=== PATIENT | male | born 1950 | race Caucasian/White ===

== ENCOUNTER 2017-03-15 19:31 | Emergency (ER) | payer MEDICARE, SELFPAY | END 2017-03-16 00:34 | disposition home or self-care (01) | LOC: ER 19:31 | DX: L02.412 Cutaneous abscess of left axilla (principal); L02.211 Cutaneous abscess of abdominal wall; I10 Essential (primary) hypertension; E11.9 Type 2 diabetes mellitus without complications; M10.9 Gout, unspecified; Z79.899 Other long term (current) drug therapy; Z79.84 Long term (current) use of oral hypoglycemic drugs | CPT/HCPCS: 10060; 87070; 87186; 96372; 99070; 99282-25; 99283; J8597 ==

== ENCOUNTER 2017-03-17 14:39 | Emergency (ER) | payer MEDICARE, SELFPAY | END 2017-03-17 15:42 | disposition home or self-care (01) | LOC: ER 14:39 | DX: Z48.817 Encounter for surgical aftercare following surgery on the skin and subcutaneous tissue (principal); Z79.899 Other long term (current) drug therapy; Z79.84 Long term (current) use of oral hypoglycemic drugs | CPT/HCPCS: 99070; 99282 ==

== ENCOUNTER 2017-03-22 09:27 | Emergency (ER) | payer MEDICARE, SELFPAY | END 2017-03-22 10:40 | disposition home or self-care (01) | LOC: ER 09:27 | DX: Z48.817 Encounter for surgical aftercare following surgery on the skin and subcutaneous tissue (principal); I10 Essential (primary) hypertension; E11.9 Type 2 diabetes mellitus without complications; Z79.899 Other long term (current) drug therapy; Z79.84 Long term (current) use of oral hypoglycemic drugs | CPT/HCPCS: 99070; 99282 ==